=== PATIENT | male | born 1955 | race Caucasian/White ===

== ENCOUNTER → 2017-11-04 08:57 | Outpatient (CLI) | payer BC ==
[2015-07-12 12:31] VITALS: BMI 25.9
[~2017-11-04 08:57] MED LIST: BAYER CHEWABLE81 MG PO; COLACE100 MG PO; GLUCOSAMINE & C1 CAP PO; L-LYSINE500 M1 PO; LIPITOR20 MG PO; MAGNESIUM OXID250 MG PO; PRINIVIL20 MG PO; VITAMIN B COMPL1 TAB PO; ZYRTEC10 MG PO
== END | disposition home or self-care (01) ==
LOC: D.CT 08:57
DX: J32.9 Chronic sinusitis, unspecified (principal)